=== PATIENT | female | born 2000 | race Two or more races ===

== ENCOUNTER 2024-03-08 14:07 | Outpatient (CLI) | payer OTHER ==
--- NOTE | 2024-03-08 17:11 | Ultrasound Report ---
PROCEDURE: Pelvic w/Transvaginal INDICATIONS: MENOMETRORRHAGIA TECHNIQUE: Real-time scanning was performed of the pelvic organs, with image documentation. Additional endovagi nal scanning was necessary due to incomplete visualization of the adnexal and endometrial structures by transabdominal scanning. COMPARISON: None. FINDINGS: Uterus: Uterus is anteverted and normal in size at 6.5 x 3.9 x 4.8 cm. The myometrium is mildly het erogeneous. The endometrium measures 11 mm in combined thickness. Trace fluid in the cervical canal . Ovaries: The right ovary measures 1.6 x 1.6 x 1.7 cm, with a calculated ovarian volume of 1 cc. The left ovary measures 1.6 x 1.2 x 1.9 cm, with a calculated ovarian volume of 2 cc. The ovaries have a normal sonographic appearance. Less than 12 follicles can be seen in each ovary. No adnexal nehemiah s are seen. No cystic lesions measuring greater than 3 cm. Other: No pathologic free abdominal or pelvic fluid. IMPRESSION: 1.Endometrial thickness is normal at 11 mm. No uterine fibroids. 2.Normal sonographic appearance of the bilateral ovaries. Reviewed by: Jolene Fleming MD on 03/08/2024 5:10 PM PDT Approved by: Jolene Fleming MD on 03/08/2024 5:10 PM PDT Station ID: [id number]
== END 2024-03-08 14:08 | disposition home or self-care (01) ==
LOC: DI 14:07
PROVIDERS: ATTEND Physician Assistant Medical
DX: N92.1 Excessive and frequent menstruation with irregular cycle (principal)